=== PATIENT | female | born 1960 | race African-American/Black ===

== ENCOUNTER 2017-09-16 06:21 | Day surgery (SDC) | payer OTHER ==
[2017-08-28 13:06] VITALS: BMI 28.0
[2017-09-16] MEDS ORDERED: MIDAZOLAM HCL 2 MG/2 ML SINGLE DOSE VIAL ONE ×2 (08:19→08:20)
--- NOTE | 2017-09-16 08:50 | OP ---
Operative Note - Note: Operative Date: 09/16/17 Pre-Operative Diagnosis: LEFT KIDNEY STONE Operation: LEFT ESWL Findings: 5mm mid pole Left kidney stone Post-Operative Diagnosis: Same as Pre-op Surgeon: Yogesh Campos Anesthesia: Fractional
[2017-09-16] MEDS ORDERED: GLYCOPYRROLATE 0.2 MG/1 ML VIAL ONE (09:32)
[2017-09-16 10:11] VITALS: TEMP 97.8
[2017-09-16] MEDS ORDERED: GLYCOPYRROLATE 1 MG/5 ML VIAL IVPB ONE (10:36)
[2017-09-16] MEDS ORDERED: LACTATED RINGERS SOLUTION 1,000 ML IV SCH (10:45)
[2017-09-16 11:46] VITALS: BP 120/70; PULSE 64
--- NOTE | 2017-09-16 20:53 | OP ---
DATE OF OPERATION: 09/16/2017 PREOPERATIVE DIAGNOSIS: Left renal stone. POSTOPERATIVE DIAGNOSIS: Left renal stone. PROCEDURE: Left extracorporeal shock wave lithotripsy. ATTENDING: Jaylyn Anaya MD ANESTHESIA: Fractional. DESCRIPTION OF OPERATION: Patient was brought in the operating room and placed in supine position on the operating room table. Ultrasonography and fluoroscopy were performed. A 5-mm left mid-pole stone was identified. At this point, fractional anesthesia was administered as well as preoperative antibiotics. Shock wave lithotripsy was then performed; 2500 impulses at 17 joules of power were administered to a 5-mm left mid-pole stone with excellent fragmentation noted under real-time ultrasonography and fluoroscopy. No complications were noted. The disposition of the patient was to the recovery room. JAYLYN ANAYA M.D. [id number]
== END 2017-09-16 11:48 | disposition home or self-care (01) ==
LOC: JASU-SURG 06:21
PROVIDERS: ATTEND Urology
PROC: 0TF4XZZ Fragmentation in Left Kidney Pelvis, External Approach (ICD-10-PCS; principal; 2017-09-16 08:00)
DX: N20.0 Calculus of kidney (principal)
CPT/HCPCS: 94760